=== PATIENT | male | born 1955 | race African-American/Black ===

== ENCOUNTER 2017-08-28 04:37 | Emergency (ER) | payer MEDICAID, OTHER ==
[~2017-08-28] VITALS: Ht 175.3 cm; Wt 74.8 kg
[2017-08-28 07:26] VITALS: BP 174/98
[2017-08-28] MEDS ORDERED: KETOROLAC TROMETH 60MG/2ML VIAL IM ONE (08:00)
== END 2017-08-28 08:36 | disposition home or self-care (01) ==
LOC: ER 04:37
DX: S96.911A Strain of unspecified muscle and tendon at ankle and foot level, right foot, initial encounter (principal); M10.9 Gout, unspecified; Z76.0 Encounter for issue of repeat prescription; X58.XXXA Exposure to other specified factors, initial encounter; Y93.89 Activity, other specified; Y92.89 Other specified places as the place of occurrence of the external cause; Y99.8 Other external cause status
CPT/HCPCS: 96372; 99283; J1885